=== PATIENT | female | born 1950 | race Native Hawaiian/Other Pacific Islander ===

== ENCOUNTER 2021-03-23 11:46 | Outpatient (CLI) | payer OTHER | END 2021-03-23 20:06 | disposition home or self-care (01) | LOC: RESP 11:46 | PROVIDERS: ATTEND Nurse Practitioner Family | DX: E03.8 Other specified hypothyroidism (principal); F41.1 Generalized anxiety disorder; E78.49 Other hyperlipidemia; M54.89 Other dorsalgia; E11.65 Type 2 diabetes mellitus with hyperglycemia; E66.9 Obesity, unspecified | CPT/HCPCS: 36415; 84436; 84443; 84481; 93005 ==

== ENCOUNTER 2022-04-27 10:42 | Outpatient (CLI) | payer OTHER ==
[2022-04-27 10:59] LABS: PLATELET COUNT 103 K/uL (152-353)
== END 2022-04-27 19:38 | disposition home or self-care (01) ==
LOC: LABW 10:42
PROVIDERS: ATTEND Nurse Practitioner Family
DX: F41.8 Other specified anxiety disorders (principal); Z79.899 Other long term (current) drug therapy; E55.9 Vitamin D deficiency, unspecified
CPT/HCPCS: 36415; 80053; 80061; 81002; 82043; 82306; 82570; 84439; 84443; 85027

== ENCOUNTER 2022-06-13 11:08 | Outpatient (CLI) | payer OTHER | END 2022-06-13 19:04 | disposition home or self-care (01) | LOC: RAD 11:08 | PROVIDERS: ATTEND Nurse Practitioner Family | DX: Z13.820 Encounter for screening for osteoporosis (principal); N95.8 Other specified menopausal and perimenopausal disorders; F41.8 Other specified anxiety disorders; M54.89 Other dorsalgia; E03.8 Other specified hypothyroidism; K21.9 Gastro-esophageal reflux disease without esophagitis; E66.9 Obesity, unspecified; E11.9 Type 2 diabetes mellitus without complications; D64.89 Other specified anemias; E78.49 Other hyperlipidemia; R10.9 Unspecified abdominal pain; R10.2 Pelvic and perineal pain ==